=== PATIENT | male | born 1940 | race African-American/Black ===

== ENCOUNTER 2018-08-22 11:37 | Inpatient (IN) | payer OTHER ==
[~2018-08-22] VITALS: Ht 167.6 cm; Wt 64.4 kg
[~2018-08-22 11:37] MED LIST: ANDROGEL; ANDROGEL5 GM TOP; ASPIRIN325 PO; CARVEDILOL12.5 MG PO; CLONIDINE HCL0.3 M2 PT; DILTIAZEM 24HR300 M1 PO; FLOMAX; HYDRALAZINE 2525 M1 PO; INDOMETHACIN 2525 MG PO; LEVOTHROID25 MCG PO; LISINOPRIL40 MG PO; TAMSULOSIN HCL0.4 MG PO; VICODIN 5-5001 EACH PO
[2018-08-22 11:43] VITALS: BP 168/92
[2018-08-22 12:08] LABS: ABSOLUTE NEUTROPHILS 7.2 thou/uL (1.4-8.2); BASOPHILS 0.8 % (0.0-2.0); EOSINOPHILS 0.2 % (0.0-3.0); HEMATOCRIT 36.2 % (42.0-52.0); HEMOGLOBIN 12.3 gm/dL (14.0-18.0); LYMPHOCYTES 19.1 % (24.0-44.0); MCH 27.2 pg (26.0-34.0); MCHC 33.8 g/dL (28.0-37.0); MCV 80.3 fL (80.0-100.0); MONOCYTES 6.9 % (1.0-8.0); PLATELET COUNT 356 thou/uL (150-400); RBC 4.51 mil/uL (4.50-6.00); RDW 15.2 % (10.5-14.5); WBC 9.8 thou/uL (4.0-11.0)
[2018-08-22 12:38] LABS: BE(vivo) 3.1 mmol/L (-2 to +3); HCO3 21.5 mmol/L (22.0-26.0); PO2 101.9 mmHg (80.0-100.0); sO2 98.7 % (92.0-98.0)
[2018-08-22 12:39] LABS: PCO2 18.9 mmHg (35.0-45.0); pH 7.674 (7.360-7.450)
[2018-08-22 12:43] LABS: CALCIUM 10.6 mg/dL (8.5-10.1); CREATININE 1.8 mg/dL (0.7-1.3); POTASSIUM 3.8 mmol/L (3.5-5.1)
[2018-08-22 12:53] LABS: ALBUMIN 5.2 g/dL (3.4-5.0); TOTAL BILIRUBIN 0.4 mg/dL (<0.1-1.0); TOTAL PROTEIN 9.2 g/dL (6.4-8.2); TROPONIN-I 0.15 ng/mL (<0.06)
[2018-08-22 13:33] LABS: URINE BILIRUBIN NEGATIVE (Negative); URINE BLOOD 1+ (Negative); URINE CLARITY CLEAR; URINE COLOR YELLOW; URINE GLUCOSE-RANDOM* NEGATIVE (Negative); URINE KETONES TRACE (Negative); URINE LEUKOCYTES-REFLEX NEGATIVE (Negative); URINE NITRITE-REFLEX NEGATIVE (Negative); URINE PROTEIN (DIPSTICK) 2+ (Negative); URINE SPECIFIC GRAVITY 1.015 (1.005-1.035); URINE UROBILINOGEN 0.2 E.U./dl (0.2-1.0)
[2018-08-22 13:43] LABS: SQUAMOUS 0-3 Few /LPF (0-3)
[2018-08-22 13:44] LABS: BACTERIA-REFLEX 1-9 Few /HPF (None Seen); CASTS None Seen /LPF (None Seen); CRYSTALS None Seen /LPF (None Seen); URINE RBC 0-2 Rare /HPF (0-2); URINE WBC-REFLEX 0-5 Rare /HPF (0-5)
[2018-08-22 15:04] VITALS: BP 168/92
[2018-08-22 15:41] VITALS: BP 186/92
--- NOTE | 2018-08-22 17:10 | NUR ---
PT ADMITED FROM ER. ADMISSION HX AND ASSESSMENT COMPLETED. ALERT AND ORIENTED WITH FORGETFULNESS. ASSESSMENT CHARTED. PT ORIENTED TO THE ROOM AND THE CALL LIGHT SYSTEM. FAMILY NOTIFED. FALL PRECAUTION IMPLEMENTED. WILL CONTINUE TO MONITOR.
[2018-08-22 20:16] VITALS: BP 167/81
[2018-08-23 00:05] VITALS: BP 142/87
[2018-08-23 04:36] LABS: HEMATOCRIT 35.5 % (42.0-52.0); HEMOGLOBIN 11.7 gm/dL (14.0-18.0); MCH 26.6 pg (26.0-34.0); MCHC 32.9 g/dL (28.0-37.0); MCV 80.9 fL (80.0-100.0); RBC 4.39 mil/uL (4.50-6.00); RDW 15.5 % (10.5-14.5); WBC 9.6 thou/uL (4.0-11.0)
[2018-08-23 04:48] LABS: CALCIUM 8.9 mg/dL (8.5-10.1); CREATININE 1.3 mg/dL (0.7-1.3); POTASSIUM 3.5 mmol/L (3.5-5.1); TROPONIN-I 0.22 ng/mL (<0.06)
[2018-08-23 04:56] VITALS: BP 156/88
--- NOTE | 2018-08-23 06:19 | NUR ---
PT RESTING COMFORTABLE IN BED. ABLE TO TURN SELF IN BED. CONTINUES ON RA AND WITH MAINTENANCE IVFs. AM LABS REVIEWED. PT HAD NO C/O PAIN THROUGHOUT SHIFT.
[2018-08-23 07:15] VITALS: BP 159/71
--- NOTE | 2018-08-23 07:48 | EKG ---
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: ABELINO : 1940 Requested By: Eugenie Calzada Order Number: [id number] MD: Quinton Ogden Measurements Intervals [place] Rate: 90 P: [place]: QRS: 58 QRSD: 77 T: -59 QT: 380 QTc: 465 Interpretive Statements Probable sinus rhythm with frequent atrial premature complexes Borderline repolarization abnormality Compared to ECG 03/23/2015 14:16:56 No significant change was found Electronically Signed On 08-23-2018 7:48:21 CDT by Quinton Ogden [email or web address] ��������������������������������������������� <ELECTRONICALLY SIGNED> ���������������������������������������� By: Quinton Ogden MD, [facility] ��������������������������������������������� 08/23/18 0748 [id number] Quinton Ogden MD, [facility] /EPI
--- NOTE | 2018-08-23 10:35 | 2DMMODE ---
[facility] [address] [place] [address] 2 D/M-MODE ECHOCARDIOGRAM Name: REGGIE SANDERS Room #: 201-P ADM IN M.R.#: [id number] ������������� Admission: 08/22/18 ������������� Attend Phys: Madiha Landaverde MD Discharge: ��� ������������� ��� Date of : 40 Date of Service: 08/23/18 1035 �� Report #: [id number] �������� ��������������������������������������������[id number] THIS REPORT FOR: //name// APPROVED REPORT Study performed: 08/23/2018 09:49:46 EXAM: Comprehensive 2D, Doppler, and color-flow Echocardiogram Patient Location: Echo lab Room #: 201 Status: routine BSA: 1.73 HR: 63 bpm BP: 159/71 mmHg Rhythm: NSR/PACs Indications Chest Pain Elevated troponin. HTN 2D Dimensions RVDd: 25.39 mm IVSd: 12.44 (7-11mm) LVOT Diam: 22.18 (18-24mm) LVDd: 45.53 mm PWd: 12.06 (7-11mm) Ascending Ao: 39.36 (22-36mm) LVDs: 32.58 (25-40mm) Aortic Root: 40.17 mm Volumes Left Atrial Volume (Systole) Single Plane 4CH: 41.55 mL Single Plane 2CH: 35.70 mL LA ESV Index: 24.00 mL/m2 Aortic Valve AoV Peak Preston.: 1.17 m/s AO Peak Gr.: 5.51 mmHg LVOT Max P.41 mmHg LVOT Max V: 0.78 m/s BRETT Vmax: 2.55 cm2 AI Vmax: 4.47 m/s AI Cidra: 2.65 m/s2 AI PHT: 488.45 ms Mitral Valve E/A Ratio: 0.6 MV Decel. Time: 381.64 ms [facility] [address] 2 D/M-MODE ECHOCARDIOGRAM Name: REGGIE SANDERS Room #: [address] [place] [address] IN M.R.#: [id number] ������������� Admission: 08/22/18 ������������� Attend Phys: Madiha Landaverde MD Discharge: ��� ������������� ��� Date of : 40 Date of Service: 08/23/18 1035 �� Report #: [id number] �������� ��������������������������������������������[id number] MV E Max Preston.: 0.34 m/s MV A Preston.: 0.56 m/s MV PHT: 110.68 ms IVRT: 115.34 ms Pulmonary Valve PV Peak Preston.: 0.80 m/s PV Peak Gr.: 2.56 mmHg Tricuspid Valve TR Peak Preston.: 2.29 m/s RAP Estimate: 5.00 mmHg TR Peak Gr.: 21.04 mmHg PA Pressure: 26.00 mmHg Left Ventricle The left ventricle is normal size. There is normal LV segmental wall motion. Moderate concentric left ventricular hypertrophy. Left ventricular systolic function is normal. LVEF is 55%. Mild diastolic dysfunction is present (impaired relaxation pattern). Right Ventricle The right ventricle is normal size. The right ventricular systolic function is normal. Atria The left atrium size is normal. The right atrium size is normal. Aortic Valve Aortic valve is trileaflet. Mild to moderate aortic regurgitation. There is no aortic valvular stenosis. Mitral Valve The mitral valve is normal in structure. Mild mitral regurgitation. Tricuspid Valve The tricuspid valve is normal in structure. Mild tricuspid regurgitation. Estimated PAP is 25-30mmHg. Pulmonic Valve The pulmonary valve is normal in structure. Mild pulmonic regurgitation. Great Vessels Aortic root is mildly dilated. The ascending aorta is mildly dilated. IVC is normal in size and collapses >50% with [facility] [address] [place] [address] 2 D/M-MODE ECHOCARDIOGRAM Name: REGGIE SANDERS Room #: 201-P [facility] IN .R.#: [id number] ������������� Admission: 08/22/18 ������������� Attend Phys: Madiha Landaverde MD Discharge: ��� ������������� ��� Date of : 40 Date of Service: 08/23/18 1035 �� Report #: [id number] �������� ��������������������������������������������[id number] inspiration. Pericardium There is no pericardial effusion. <Conclusion> The left ventricle is normal size. Moderate concentric left ventricular hypertrophy. Left ventricular systolic function is normal. Mild diastolic dysfunction is present (impaired relaxation pattern). The right ventricle is normal size. The left atrium size is normal. Mild to moderate aortic regurgitation. Mild mitral regurgitation. Mild tricuspid regurgitation. Estimated PAP is 25-30mmHg. ��������������������������������������������� <ELECTRONICALLY SIGNED> ���������������������������������������� By: Matt Hassan MD ��������������������������������������������� 08/23/18 1035 Matt Hassan MD /INF
--- NOTE | 2018-08-23 15:35 | NUR ---
ASSESSMENT CHARTED. PT ALERT AND ORIENTED. DENIED HAVING PAIN OR DISCOMFORT. GIVEN PRN MIRALAX WITH RESULT. PT REPORT FEELING MUCH BETTER. DENIES HAVING NAUSEA. NO EMESIS. EVALUATED BY PT/OT. NO CARDIAC OR RSPIRATORY DISTRESS NOTED. WILL CONTINUE TO MONITOR. PROGRESSING WELL TOWARD DISCHARGE GOAL.
[2018-08-23 15:50] VITALS: BP 160/69
[2018-08-23 20:15] VITALS: BP 140/67
[2018-08-24 03:51] VITALS: BP 159/54
--- NOTE | 2018-08-24 04:19 | NUR ---
RECEIVED PT'S CARE AT 1900; PT. ON BED; AOX4; FORGETFUL; DURING ASSESSMENT NO C/O PAIN; HR BETWEEN 40'S-50'S; NO C/O DIZZINESS OR HEADACHE; THROUGH THE NIGHT PT. ABLE TO REST WITH EYES CLOSE; NO C/O PAIN; HEART RHYTHM SB; HS MEDICATION NOT GIVEN; SBP ON THE 140'S; WILL KEEP MONITORING; ASSESSMENT CHARGED; FOLLOWING POC; WILL PASS ON REPORT.
[2018-08-24 07:20] VITALS: BP 152/70
[2018-08-24] MEDS ORDERED: AMLODIPINE BESYL5 M1 PO (10:12)
[2018-08-24] MEDS ORDERED: CARVEDILOL25 MG PO (10:12)
[2018-08-24] MEDS ORDERED: MONOPRIL20 MG PO (10:13)
[2018-08-24 10:45] VITALS: BP 152/70
--- NOTE | 2018-08-24 14:36 | NUR ---
PT CARE ASSUMED APPROX 0700. PT ALERT AND ORIENTED X4. DENIES PAIN AND SOA. VSS. PT DISCHARGED AT THIS TIME. PT WENT HOME TO SELF CARE. PAPERWORK REVIEWED WITH PT. HE DENIED QUESTIONS OR CONCERNS REGARDING SCRIPTS, MEDS, DIET, ACTIVITY LEVEL, F/U APPTS AND GENERAL POST HOSPITAL CARE. ALL BELONGINGS IN PT POSSESSION. IV OUT, TELE BOX OFF. PT REQUESTED CAB TRANSPORTATION BE ARRANGED BY NURSING. VB NET PROGRAMMER CAME TO ROOM. PT ESCORTED OUT.
--- NOTE | 2018-08-29 10:17 | NUR ---
On 08/28/[address] Wesly Gagnon did complete a Peer to Peer review with Dr. Salvador Mathew of [facility]; who denied level of care services for this patient. PLACE IN PATIENT PERMANENT MEDICAL RECORD.
== END 2018-08-24 13:00 | disposition home or self-care (01) | DRG 391 ==
LOC: ER 11:37 → 2N 14:45 → EROBS 14:45 → 2N 15:42
PROVIDERS: Physician Assistant; ADMIT Internal Medicine
DX: A08.4 Viral intestinal infection, unspecified (principal); N17.0 Acute kidney failure with tubular necrosis; I10 Essential (primary) hypertension; E03.9 Hypothyroidism, unspecified; K59.00 Constipation, unspecified; I49.1 Atrial premature depolarization; I48.2 Chronic atrial fibrillation; Z79.82 Long term (current) use of aspirin; Z79.899 Other long term (current) drug therapy; Z87.891 Personal history of nicotine dependence
CPT/HCPCS: 10081

== ENCOUNTER 2018-11-24 23:24 | Emergency (ER) | payer OTHER ==
[~2018-11-24] VITALS: Ht 167.6 cm; Wt 70.3 kg
[~2018-11-24 23:24] MED LIST changes: +AMLODIPINE BESYL5 M1 PO; +CARVEDILOL25 MG PO; +MONOPRIL20 MG PO
[2018-11-25 00:15] LABS: ABSOLUTE NEUTROPHILS 3.3 thou/uL (1.4-8.2); BASOPHILS 1.2 % (0.0-2.0); EOSINOPHILS 4.8 % (0.0-3.0); HEMATOCRIT 30.4 % (42.0-52.0); HEMOGLOBIN 10.3 gm/dL (14.0-18.0); LYMPHOCYTES 39.9 % (24.0-44.0); MCH 28.2 pg (26.0-34.0); MCHC 33.9 g/dL (28.0-37.0); MCV 83.2 fL (80.0-100.0); MONOCYTES 8.7 % (1.0-8.0); PLATELET COUNT 308 thou/uL (150-400); POLYS 45.4 % (36.0-66.0); RBC 3.65 mil/uL (4.50-6.00); RDW 16.1 % (10.5-14.5); WBC 7.3 thou/uL (4.0-11.0)
[2018-11-25 00:24] LABS: CALCIUM 8.9 mg/dL (8.5-10.1); CREATININE 1.6 mg/dL (0.7-1.3)
[2018-11-25 00:26] LABS: POTASSIUM 5.3 mmol/L (3.5-5.1)
[2018-11-25 01:35] LABS: URINE BILIRUBIN NEGATIVE (Negative); URINE BLOOD NEGATIVE (Negative); URINE CLARITY CLEAR; URINE COLOR YELLOW; URINE GLUCOSE-RANDOM* NEGATIVE (Negative); URINE KETONES NEGATIVE (Negative); URINE LEUKOCYTES-REFLEX TRACE (Negative); URINE PROTEIN (DIPSTICK) NEGATIVE (Negative); URINE SPECIFIC GRAVITY <= 1.005 (1.005-1.035); URINE UROBILINOGEN 0.2 E.U./dl (0.2-1.0)
[2018-11-25 01:42] LABS: URINE NITRITE-REFLEX POSITIVE (Negative)
[2018-11-25 01:45] LABS: BACTERIA-REFLEX >30 Many /HPF (None Seen); CASTS None Seen /LPF (None Seen); CRYSTALS None Seen /LPF (None Seen); MUCUS None Seen strn/LPF (None Seen); SQUAMOUS None Seen /LPF (0-3); URINE RBC 0-2 Rare /HPF (0-2); URINE WBC-REFLEX 6-15 Few /HPF (0-5)
[2018-11-25] MEDS ORDERED: KEFLEX500 M1 PO (03:58)
[2018-11-25 04:16] VITALS: BP 183/72
== END 2018-11-25 04:23 | disposition home or self-care (01) ==
LOC: ER 23:24
PROVIDERS: Emergency Medicine
DX: N39.0 Urinary tract infection, site not specified (principal); R07.89 Other chest pain; I10 Essential (primary) hypertension; E03.9 Hypothyroidism, unspecified